=== PATIENT | male | born 1995 | race Caucasian/White ===

== ENCOUNTER 2016-08-21 11:49 | Emergency (ER) | payer BC ==
[2016-08-21 12:01] VITALS: TEMP 97.5; BMI 26.6
[2016-08-21] MEDS ORDERED: MORPHINE 4 MG/ML INJECTION IV ONE (13:01)
[2016-08-21] MEDS ORDERED: ONDANSETRON HCL 4 MG/2 ML VIAL IV ONE (13:01)
[2016-08-21] MEDS ORDERED: SODIUM CHLORIDE 0.9% 10 ML FLUSH FLUSH PRN (13:01)
[2016-08-21] MEDS ORDERED: NS 1,000 ML IV ONE (13:01)
--- NOTE | 2016-08-21 13:10 | EDPRACDOC ---
- General Information Chief Complaint: Male Urogenital Problems Stated Complaint: RIGHT LOWER BACK PAIN - KIDNEY STONES? Information Source: Patient Mode Of Arrival: Car Home Medications: Home Medications Ketorolac Tromethamine [Toradol] 10 mg PO Q6H PRN #15 tab 08/21/16 Oxycodone Immediate Release [Oxycodone Immediate Release (OxyIR)] 5 - 10 mg PO Q6H PRN #30 tab 08/21/16 Promethazine [Phenergan] 25 mg PO Q4-6H PRN #15 tab 08/21/16 Allergies/Adverse Reactions: Allergies Allergy/AdvReac Type Severity Reaction Status Date / Time No Known Allergies Allergy Verified 08/21/16 12:01 - History of Present Illness Onset: THIS AM HPI: Pt c/o R flank pain radiating to RLQ and groin x 1 day with n/v. Denies fever, cough, congestion, cp, sob, changes in bowel or bladder, penile discharge, rash. Pain Location: Reports: RLQ, Flank Pain Context: Reports: Spontaneous Pain Severity: Moderate Pain Quality: Reports: Sharp, Stabbing Pain Radiation: Reports: Flank, Groin Adult Abdominal History: Denies: Abdominal Surgery, Urolithiasis, Bowel Obstruction, Similar Pain (dx) Modifying Factors: improves with: Nothing Associated Signs & Symptoms: Reports: Nausea, Vomiting Oral Intake: Decreased Urinary Output: Decreased ED Past Medical History - History Reviewed Yes Nurses notes reviewed and agree except as marked - Patient Medical History Systemic History: Denies: Cancer - Social Medical History Smoking Status: Never smoker ETOH: None Substance Abuse: None EDM Review of Systems - Review of Systems Constitutional: No Symptoms Reported. negative: Fever, Chills, Weakness, Fatigue, Loss of Appetite Ears: No Symptoms Reported. negative: Pain, Hearing Loss, Drainage, Ear Pulling Throat: No Symptoms Reported. negative: Pain, Swelling Nose: No Symptoms Reported. negative: Congestion, Bleeding, Discharge, Injection, Swelling, Deformity, Ecchymosis, Tender, Abrasion, Laceration Mouth: No Symptoms Reported. negative: Pain, Drooling Respiratory: No Symptoms Reported. negative: Cough, Brassy Cough, Barky Cough, Shortness of Breath, Wheezing, Hemoptysis Cardiovascular: No Symptoms Reported. negative: Chest Pain, Palpitations, Syncope, Edema, Orthopnea, PND, Skin Mottling, Cyanosis Gastrointestinal: Nausea, Pain, Vomiting Genitourinary: Flank Pain. negative: No Symptoms Reported, Bleeding, Dysuria, Discharge, Frequency, Hematuria, , Testicular Pain Neurological: No Symptoms Reported. negative: Headache, Dizziness, Seizure, Numbness, Weakness, Speech Difficulty, Gait Difficulty Musculoskeletal: Back. negative: No Symptoms Reported, Arm, Ankle, Chestwall, Elbow, Forearm, Femur, Foot, Hand, Hip, Knee, Leg, Neck, Pelvis, Ribs, Shoulder , Wrist Integumentary: No Symptoms Reported. negative: Itching, Rash, Bruising, Wound Allergic/Immunologic: No Symptoms Reported. negative: Hives, Itching Hematologic: No Symptoms Reported. negative: Lymphadenopathy, Easy Bruising, Easy Bleeding Psychiatric: No Symptoms Reported. negative: Anxiety, Depression, Hallucinations, Insomnia, Suicidal - Physical Exam Constitutional: Alert, Distress (moderate) Oriented to: Time, Person, Place Last recorded Vital Signs: Last Vital Signs Temp 97.5 F 08/21/16 11:57 Pulse 68 08/21/16 11:57 Resp 24 08/21/16 11:57 BP 162/108 H 08/21/16 11:57 Pulse Ox 98 08/21/16 11:57 Oxygen Pulse Oxygen Saturation 98 O2 Device Room Air Oxygen Flow Rate Fraction of Inspired Oxygen ( FIO2) - HEENT Head: Normal ( normocephalic) Eye Exam: Normal (PERRL, EOMI, Sclera white) Neck: Normal (FROM, trachea at midline) - Respiratory/Cardiovascular Respiratory: Normal - CTA (BBS clear to auscultation without adventitious sounds ) Cardiovascular: Normal (RRR without murmur, gallop or rub) - GI Auscultation: Normal (NABS) Palpation: Normal (Soft,No rebound or guarding, non distended) Tenderness: Moderate, RUQ, RLQ - Musculoskeletal Back: CVA Tenderness Extremities: Normal (Normal tone, Pulses 2+ No cyanosis or edema, FROM) - Integumentary Skin: Normal, Warm, Dry Lymphatics: Normal (no adenopathy) - Neurologic Memory Impaired: Normal Motor Function: Normal (Normal tone, Pulses 2+ No cyanosis or edema, FROM) Mood Description: Normal Perception: Normal - Differential Diagnosis Appendicitis, Cholecystitis, Cholelithiasis, Colic, Urolithiasis, UTI, Other ( pyelonephritis) - Results 08/21/16 13:05 08/21/16 13:05 WBC 17.4 xk/uL (3.8-10.8) H 08/21/16 13:05 RBC 5.53 xM/uL (4.70-6.10) 08/21/16 13:05 Hgb 16.1 g/dL (14.0-18.0) 08/21/16 13:05 Hct 48.0 % (42-52) 08/21/16 13:05 MCV 87 fL (80-94) 08/21/16 13:05 MCH 29.2 pg (27-32) 08/21/16 13:05 MCHC 33.6 g/dl (33-36) 08/21/16 13:05 RDW 13.2 % (11.5-14.5) 08/21/16 13:05 Plt Count 203 xk/uL (130-400) 08/21/16 13:05 MPV 8.9 fL (7.4-10.4) 08/21/16 13:05 Neut % (Auto) 84.0 % (45-76) H 08/21/16 13:05 Lymph % (Auto) 9.4 % (17-44) L 08/21/16 13:05 [place] % (Auto) 6.1 % (3-10) 08/21/16 13:05 Eos % (Auto) 0.1 % (0-5) 08/21/16 13:05 Baso % (Auto) 0.4 % (0-2) 08/21/16 13:05 Absolute Neuts (auto) 14.62 xk/uL (1.7-8.2) H 08/21/16 13:05 Absolute Lymphs (auto) 1.57 xk/uL (0.65-4.75) 08/21/16 13:05 Sodium 140 mEq/L (137-146) 08/21/16 13:05 Potassium 3.7 mEq/L (3.5-5.1) 08/21/16 13:05 Chloride 104 mEq/L (98-107) 08/21/16 13:05 Carbon Dioxide 21 mMOL/L (22-33) L 08/21/16 13:05 Anion Gap 19 mEq/L (8-16) H 08/21/16 13:05 BUN 13 MG/DL (9-20) 08/21/16 13:05 Creatinine 0.90 MG/DL (0.66-1.25) 08/21/16 13:05 Estimated GFR (MDRD) > 60 mL/min (>=60) 08/21/16 13:05 Glucose 162 MG/DL (70-99) H 08/21/16 13:05 Calculated Osmolality 273 MOs/Kg (270-290) 08/21/16 13:05 Calcium 9.2 MG/DL (8.4-10.2) 08/21/16 13:05 Total Bilirubin 0.6 MG/DL (0.2-1.3) 08/21/16 13:05 AST 25 IU/L (17-59) 08/21/16 13:05 ALT 36 IU/L (21-72) 08/21/16 13:05 Alkaline Phosphatase 77 IU/L (38-126) 08/21/16 13:05 Total Protein 7.8 G/DL (6.3-8.2) 08/21/16 13:05 Albumin 4.6 G/DL (3.5-5.0) 08/21/16 13:05 Urine Color Yellow 08/21/16 13:54 Urine Clarity Clear 08/21/16 13:54 Urine pH 6.0 (5.0-8.0) 08/21/16 13:54 Ur Specific [place] 1.005 (1.003-1.035) 08/21/16 13:54 Urine Protein Neg (NEG/TRACE) 08/21/16 13:54 Urine Glucose (UA) 3+ (NEGATIVE) 08/21/16 13:54 Urine Ketones Neg (NEGATIVE) 08/21/16 13:54 Urine Occult Blood 3+ (NEG/TRACE) H 08/21/16 13:54 Urine Nitrite Neg (NEGATIVE) 08/21/16 13:54 Urine Bilirubin Neg (NEGATIVE) 08/21/16 13:54 Urine Urobilinogen <2.0 MG/DL (0-1) 08/21/16 13:54 Ur Leukocyte Esterase Neg (NEGATIVE) 08/21/16 13:54 Urine RBC Tntc (0-2) H 08/21/16 13:54 Urine WBC 0-2 (0-2) 08/21/16 13:54 Urine Bacteria Few (NEG/FEW) 08/21/16 13:54 Urine Mucus Occ (NEG/OCC) 08/21/16 13:54 Urine Yeast Few (NONE) H 08/21/16 13:54 Lab Results 08/21/16 08/21/16 08/21/16 13:54 13:05 13:05 WBC 17.4 H RBC 5.53 Hgb 16.1 Hct 48.0 MCV 87 MCH 29.2 MCHC 33.6 RDW 13.2 Plt Count 203 MPV 8.9 Neut % (Auto) 84.0 H Lymph % (Auto) 9.4 L [place] % (Auto) 6.1 Eos % (Auto) 0.1 Baso % (Auto) 0.4 Absolute Neuts (auto) 14.62 H Absolute Lymphs (auto) 1.57 Sodium 140 Potassium 3.7 Chloride 104 Carbon Dioxide 21 L Anion Gap 19 H BUN 13 Creatinine 0.90 Estimated GFR (MDRD) > 60 Glucose 162 H Calculated Osmolality 273 Calcium 9.2 Total Bilirubin 0.6 AST 25 ALT 36 Alkaline Phosphatase 77 Total Protein 7.8 Albumin 4.6 Urine Color Yellow Urine Clarity Clear Urine pH 6.0 Ur Specific [place] 1.005 Urine Protein Neg Urine Glucose (UA) 3+ Urine Ketones Neg Urine Occult Blood 3+ H Urine Nitrite Neg Urine Bilirubin Neg Urine Urobilinogen <2.0 Ur Leukocyte Esterase Neg Urine RBC Tntc H Urine WBC 0-2 Urine Bacteria Few Urine Mucus Occ Urine Yeast Few H - Diagnostic Imaging Abdomen Image interpreted by: Radiologist 08/21/16 14:17 IMPRESSION: Mild right hydroureteronephrosis with periureteric fat stranding likely secondary to recently passed stone as there is a dependently located 3 mm stone within the posterior aspect of the urinary bladder. Multiple nonobstructing stones demonstrated within the left kidney. Decision Time to Discharge: 15:14 - Departure Disposition: Home Condition: Good Final Diagnosis: Candidiasis of urogenital site, Renal colic on right side, Kidney stone on right side Instructions: Kidney Stones (ED), Skin Yeast Infection (ED) Education/Counseling Given To: Patient Education/Counseling Given Regarding: Diagnosis, Treatment, Follow Up Referrals: None,No Provider [Primary Care Provider] - One Week Jeevan Dolan MD [Staff Physician] - One Week Prescriptions: Ketorolac Tromethamine [Toradol] 10 mg PO Q6H PRN #15 tab PRN Reason: Pain Oxycodone Immediate Release [Oxycodone Immediate Release (OxyIR)] 5 - 10 mg PO Q6H PRN #30 tab PRN Reason: Pain Promethazine [Phenergan] 25 mg PO Q4-6H PRN #15 tab PRN Reason: Nausea/Vomiting Additional Instructions: Increase fluids. Return for worse or different symptoms.
[2016-08-21 13:13] LABS: AUTOMATED BASOPHIL 0.4 % (0-2); AUTOMATED EOSINOPHIL 0.1 % (0-5); AUTOMATED LYMPH 9.4 % (17-44); AUTOMATED MONOCYTE 6.1 % (3-10); MPV 8.9 fL (7.4-10.4)
[2016-08-21 13:44] LABS: BLOOD UREA NITROGEN 13 MG/DL (9-20); CALCIUM 9.2 MG/DL (8.4-10.2); CALCULATED OSMOLALITY 273 MOs/Kg (270-290); CHLORIDE 104 mEq/L (98-107); GLUCOSE 162 MG/DL (70-99); SODIUM LEVEL 140 mEq/L (137-146); TOTAL PROTEIN 7.8 G/DL (6.3-8.2)
[2016-08-21] MEDS ORDERED: NS 1,000 ML IV SCH (14:00)
--- NOTE | 2016-08-21 14:12 | DIRPT ---
CLINICAL DATA: Patient with right flank pain. EXAM: CT ABDOMEN AND PELVIS WITHOUT CONTRAST TECHNIQUE: Multidetector CT imaging of the abdomen and pelvis was performed following the standard protocol without IV contrast. COMPARISON: None. FINDINGS: Lower chest: Unremarkable Hepatobiliary: Liver is normal in size and contour. Gallbladder is unremarkable. Pancreas: Unremarkable Spleen: Unremarkable Adrenals/Urinary Tract: The adrenal glands are normal. There is mild right hydroureteronephrosis to the level of the urinary bladder. There is periureteric fat stranding. There is a 3 mm stone located dependently within the base of the urinary bladder (image 280; series 2), likely recently passed from the right ureter. No definite residual right renal stones are identified. There are multiple 2-3 mm stones throughout the left kidney. No left-sided hydronephrosis or ureterolithiasis. Stomach/Bowel: No abnormal bowel wall thickening or evidence for bowel obstruction. The appendix is normal. Free fluid or free intraperitoneal air. Normal morphology to the stomach. Vascular/Lymphatic: Normal caliber abdominal aorta. No retroperitoneal lymphadenopathy. Other: Prostate unremarkable. Musculoskeletal: No aggressive or acute appearing osseous lesions. Bilateral L5 pars defects. Grade 1 anterolisthesis of L5 on S1. IMPRESSION: Mild right hydroureteronephrosis with periureteric fat stranding likely secondary to recently passed stone as there is a dependently located 3 mm stone within the posterior aspect of the urinary bladder. Multiple nonobstructing stones demonstrated within the left kidney. Electronically Signed By: Ezra Alexandre M.D. On: 08/21/2016 14:09
[2016-08-21 14:23] LABS: LEUKOCYTES/URINE NEG (NEGATIVE); NITRITE/URINE NEG (NEGATIVE); RBC/URINE TNTC (0-2); URINE OCCULT BLOOD 3+ (NEG/TRACE); WBC/URINE 0-2 (0-2)
[2016-08-21] MEDS ORDERED: FLUCONAZOLE 150 MG TAB PO ONE (15:13)
[2016-08-21 15:45] VITALS: BP 135/67; PULSE 67
[2016-08-21] MEDS ORDERED: OXYCODONE HCL 5 MG TABLET PO ONE (15:47)
[2016-08-23 16:40] LABS: CHLAMY BY NUCLEIC ACID AMP Negative (Negative)
[2016-08-24 08:54] LABS: GC BY NUCLEIC ACID AMP Negative (Negative)
== END 2016-08-21 15:57 | disposition home or self-care (01) ==
LOC: ED 11:49
DX: N20.0 Calculus of kidney (principal); B37.49 Other urogenital candidiasis
CPT/HCPCS: 36415; 74176; 80053; 81001; 85025; 87491; 87591; 96361; 96374; 96375; 99284; J2270; J2405; J3490